=== PATIENT | female | born 1960 | race Asian ===

== ENCOUNTER 2022-02-10 09:01 | Day surgery (SDC) | payer MEDICAID ==
[~2022-02-10] VITALS: Ht 162.6 cm; Wt 56.7 kg
[2022-02-10] MEDS ORDERED: DIPHENHYDRAMINE INJ 50 MG/ML VIAL ONE (11:06)
[2022-02-10] MEDS ORDERED: fentaNYL CITRATE/PF 100 MCG/2 ML AMP ONE (11:06)
[2022-02-10] MEDS ORDERED: ONDANSETRON HCL 4 MG/2 ML VIAL ONE (11:07)
[2022-02-10] MEDS: MIDAZOLAM HCL 5 MG/5 ML VIAL ONE ×2 (12:47→12:50)
[2022-02-10 15:15] VITALS: BP_SYST 143
== END 2022-02-10 14:10 | disposition home or self-care (01) ==
LOC: SDS 09:01 → SMU 09:05 → SDS 14:10
PROVIDERS: ATTEND Internal Medicine
DX: M51.16 Intervertebral disc disorders with radiculopathy, lumbar region (principal); M51.86 Other intervertebral disc disorders, lumbar region; M51.9 Unspecified thoracic, thoracolumbar and lumbosacral intervertebral disc disorder; Z20.822 Contact with and (suspected) exposure to COVID-19
CPT/HCPCS: 62323; 87426; 36415; J1200; J2250; J2405; J3010; 76000